=== PATIENT | female | born 1955 | race Two or more races ===

== ENCOUNTER 2018-01-06 07:45 | Outpatient (CLI) | payer OTHER ==
[~2018-01-06 07:45] MED LIST: BRONCOTRON-D S473 ML PO; FOLIC ACID0.4 MG; LASIX20 MG; MEDROL4 MG PO; ORPH100T PO; SIMVASTATIN20 MG; SYNTHROID100 MCG PO; TRAMADOL HCL-AP1 TAB PO; TRAMADOL HCL50 MG PO
== END 2018-01-06 13:49 | disposition home or self-care (01) ==
LOC: MRI 07:45
DX: M25.462 Effusion, left knee (principal); S83.8X2A Sprain of other specified parts of left knee, initial encounter
CPT/HCPCS: 73721

== ENCOUNTER 2018-02-17 09:44 | Outpatient (CLI) | payer OTHER | END 2018-02-17 09:50 | disposition home or self-care (01) | LOC: MRI 09:44 | DX: M25.561 Pain in right knee (principal); M93.261 Osteochondritis dissecans, right knee | CPT/HCPCS: 73721 ==

== ENCOUNTER → 2019-04-18 09:22 | Outpatient (CLI) | payer OTHER | END | disposition home or self-care (01) | LOC: LAB 09:22 | DX: N20.0 Calculus of kidney (principal) ==

== ENCOUNTER 2019-04-20 09:00 | Outpatient (CLI) | payer OTHER | END 2019-04-20 09:07 | disposition home or self-care (01) | LOC: TOM 09:00 | DX: R14.0 Abdominal distension (gaseous) (principal); R10.33 Periumbilical pain; R11.0 Nausea; K43.9 Ventral hernia without obstruction or gangrene | CPT/HCPCS: 74177; Q9965 ==

== ENCOUNTER 2019-09-12 13:49 | Outpatient (CLI) | payer OTHER | END 2019-09-12 14:35 | disposition home or self-care (01) | LOC: MRI 13:49 | DX: S83.241A Other tear of medial meniscus, current injury, right knee, initial encounter (principal); M17.11 Unilateral primary osteoarthritis, right knee | CPT/HCPCS: 73721 ==

== ENCOUNTER 2022-04-15 11:06 | Outpatient (CLI) | payer OTHER | END 2022-04-15 11:28 | disposition home or self-care (01) | LOC: MAMO-SONO 11:06 | PROVIDERS: ATTEND Internal Medicine | DX: Z12.31 Encounter for screening mammogram for malignant neoplasm of breast (principal); N63.0 Unspecified lump in unspecified breast ==

== ENCOUNTER 2022-04-17 10:26 | Emergency (ER) | payer OTHER ==
[~2022-04-17] VITALS: Ht 149.9 cm; Wt 77.1 kg
== END 2022-04-17 13:51 | disposition home or self-care (01) ==
LOC: ER 10:26
DX: S80.262A Insect bite (nonvenomous), left knee, initial encounter (principal); Z88.6 Allergy status to analgesic agent; Z88.0 Allergy status to penicillin; Z88.2 Allergy status to sulfonamides

== ENCOUNTER 2022-10-24 08:20 | Outpatient (CLI) | payer OTHER | END 2022-10-24 08:22 | disposition home or self-care (01) | LOC: NUCLEAR 08:20 | PROVIDERS: ATTEND Internal Medicine | DX: M81.0 Age-related osteoporosis without current pathological fracture (principal) ==

== ENCOUNTER 2024-09-05 06:35 | Emergency (ER) | payer OTHER ==
[~2024-09-05] VITALS: Ht 149.9 cm; Wt 72.6 kg
[2024-09-05] MEDS ORDERED: SYNTHROID88 MCG (08:02)
[2024-09-05] MEDS ORDERED: JANUVIA25 MG (08:02)
[2024-09-05] MEDS ORDERED: MONTELUKAST SODI4 M1 (08:02)
[2024-09-05] MEDS ORDERED: MONTELUKAST SODIUM 10 MG TABLET PO ONE (08:45)
[2024-09-05] MEDS ORDERED: METHYLPREDNISOLONE SOD SUCC 40 MG VIAL IM ONE (08:45)
[2024-09-05] MEDS ORDERED: levoFLOXacin IN DEXTROSE 5 % 500MG/100ML PIGGYBAG IV ONE ×2 (08:45→08:48)
[2024-09-05] MEDS ORDERED: LEVALBUTEROL HCL 1.25 MG/3 ML SOLUTION IH ONE ×2 (08:45→09:25)
[2024-09-05] MEDS ORDERED: BENZONATATE 200 MG CAPSULE PO ONE (08:45)
[2024-09-05] MEDS ORDERED: IPRATROPIUM BROMIDE 0.5 MG/2.5 ML AMPUL.NEB IH ONE ×2 (08:45→09:25)
[2024-09-05] MEDS ORDERED: METHYLPREDNISOLONE SOD SUCC 40 MG VIAL ONE (08:48)
[2024-09-05 09:37] LABS: HEMATOCRIT 41.7 % (36.0-45.00); HEMOGLOBIN 14.2 g/dL (12.0-15.00); MEAN CELL VOLUME 86.2 fL (80.00-100.00); MEAN CORPUSCULAR HEMOGLOBIN 29.3 pg (27.00-32.0); PLATELET COUNT 201 K/uL (150-450); RED BLOOD COUNT 4.84 M/uL (4.00-6.00); RED CELL DISTRIBUTION WIDTH 14.5 % (11.5-14.5)
[2024-09-05] MEDS ORDERED: OSEL75CA PO (10:48)
[2024-09-05] MEDS ORDERED: PEPCID AC20 MG PO (10:48)
[2024-09-05] MEDS ORDERED: BENZONATATE200 M1 PO (10:54)
== END 2024-09-05 11:14 | disposition home or self-care (01) ==
LOC: ER 06:38
PROVIDERS: General Practice
DX: J10.1 Influenza due to other identified influenza virus with other respiratory manifestations (principal); R05.9 Cough, unspecified; Z20.822 Contact with and (suspected) exposure to COVID-19; I10 Essential (primary) hypertension; E11.9 Type 2 diabetes mellitus without complications; Z88.0 Allergy status to penicillin; Z88.6 Allergy status to analgesic agent
CPT/HCPCS: 36415; 71046; 96365; 96372; 99283; J1956; J3490